=== PATIENT | female | born 1985 | race Caucasian/White ===

== ENCOUNTER 2016-10-23 11:05 | Emergency (ER) | payer SELFPAY ==
[~2016-10-23] VITALS: Ht 157.5 cm; Wt 55.8 kg
[2016-10-23 11:37] VITALS: BP 123/63
--- NOTE | 2016-10-23 12:37 | NUR ---
PT AMBULATED TO ER BED 06.
--- NOTE | 2016-10-23 12:40 | NUR ---
31F BIB SELF C/O RT FACIAL PAIN, THROBBING, RADIATES TO BACK OF NECK AND RT ARM, 06/29 X YESTERDAY; PT STATES HAS UPPER RIGHT TOOTHACHE, WENT TO SEE DENTIST LAST WEDNESDAY, GIVEN MOTRIN AND AMOXICILLIN; NO SWELLING OR REDNESS NOTED TO RT FACE AT THIS TIME; PT STATES TOOK MOTRIN 800 MG AT 0200 THIS MORNING W/ SOME RELIEF OF PAIN; PT A&OX4, BL LUNG SOUNDS CLEAR, RR EVEN/UNLABORED, SKIN IS WARM/DRY/INTACT AT THIS TIME; PT DENIES N/V, BUT C/O DIARRHEA AT THIS TIME; STATES WENT 3 EPISODES TODAY; ABDOMEN SOFT, NON-TENDER, ACTIVE BOWEL SOUNDS X 4 QUADRANTS; STEADY GAIT; PT RESTING IN BED W/ HOB ELEVATED AND IN LOWEST POSITION; POSITIONED FOR COMFORT; ER MD MADE AWARE OF STATUS. WILL CONTINUE TO MONITOR.
[2016-10-23 14:30] VITALS: BP 112/68
--- NOTE | 2016-10-23 14:30 | NUR ---
Patient discharged with v/s stable. Written and verbal after care instructions given and explained. Patient alert, oriented and verbalized understanding of instructions. Ambulatory with steady gait. All questions addressed prior to discharge. ID band removed. Patient advised to follow up with PMD. Rx of CLINDAMYCIN HYDROCHLORIDE & IBUPROFEN given. Patient educated on indication of medication including possible reaction and side effects. Opportunity to ask questions provided and answered.
== END 2016-10-23 14:30 | disposition home or self-care (01) ==
LOC: MED 11:09
DX: K05.10 Chronic gingivitis, plaque induced (principal); K02.9 Dental caries, unspecified; D64.9 Anemia, unspecified; Z88.5 Allergy status to narcotic agent; Z88.6 Allergy status to analgesic agent